=== PATIENT | male | born 1935 | race African-American/Black ===

== ENCOUNTER 2022-05-22 10:09 | Inpatient (IN) | payer OTHER, MEDICAID ==
[~2022-05-22] VITALS: Ht 165.1 cm; Wt 86.6 kg
[2022-05-22] MEDS ORDERED: IOHEXOL-350 100 ML BOTTLE ONE (10:38)
[2022-05-22 10:49] LABS: BASOPHILS % 0.6 % (0.0-2.0); EOSINOPHILS % 4.2 % (0.0-5.0); HEMATOCRIT. 38.7 % (42.0-52.0); HEMOGLOBIN. 12.9 g/dL (14.0-18.0); MEAN CORPUSCULAR HEMOGLOBIN 26.9 pg (28.0-32.0); MEAN CORPUSCULAR VOLUME 80.8 fL (80.0-94.0); MEAN PLATELET VOLUME 8.7 fl (7.4-10.4); MONOCYTES % 6.9 % (2.0-8.0); NEUTROPHILS % 70.3 % (40.0-76.0); PLATELET 116 x1000/uL (130-400); RED BLOOD CELL COUNT 4.79 mill/uL (4.7-6.1); RED CELL DISTRIBUTION WIDTH 16.4 % (11.6-14.6)
[2022-05-22 10:55] LABS: CHLORIDE 111 mEq/L (98-107)
[2022-05-22 10:57] LABS: INR 1.1; PROTHROMBIN TIME 11.3 sec (9.6-11.0)
[2022-05-22 11:02] LABS: ETHANOL BLOOD < 10 mg/dL
[2022-05-22] MEDS ORDERED: GUAIFENESIN 200MG/10ML SUGAR FREE UDC PO PRN (18:15)
[2022-05-22] MEDS ORDERED: DEXTROSE 50% WATER 50ML SYRINGE IV PRN (18:15)
[2022-05-22] MEDS ORDERED: NITROGLYCERIN 0.4MG TABLET SL SL PRN (18:15)
[2022-05-22] MEDS ORDERED: ACETAMINOPHEN 325MG TABLET PO PRN ×2 (18:15)
[2022-05-22] MEDS ORDERED: ONDANSETRON HCL 4MG/2ML INJ IV PRN (18:15)
[2022-05-22] MEDS ORDERED: DOCUSATE SODIUM 100MG CAPSULE PO PRN (18:15)
[2022-05-22] MEDS ORDERED: MAGNESIUM/ALUMINUM HYDROXIDE/SIMETHICONE 30ML UDC PO PRN (18:15)
[2022-05-22] MEDS ORDERED: IPRATROPIUM/ALBUTEROL 0.5-3(2.5)MG/3ML NEB NEB PRN (18:15)
[2022-05-22] MEDS ORDERED: IPRATROPIUM BROMIDE (0.02%) 0.5MG/2.5ML NEB HHN PRN (18:30)
[2022-05-22] MEDS ORDERED: ALBUTEROL (0.083%) 2.5MG/3ML NEB HHN PRN (18:30)
[2022-05-22 19:16] LABS: FOLIC ACID (FOLATE) SERUM >20 ng/mL ng/mL (>5.38); VITAMIN B12 SERUM >2000 pg/mL pg/mL (211-911)
[2022-05-22 19:50] LABS: T4 FREE 0.82 ng/dL (0.76-1.46)
[2022-05-22] MEDS: INSULIN LISPRO 100 UNITS/ML SUBCUT SCH ×2 (20:04→21:00)
[2022-05-22] MEDS: AMLODIPINE 10MG TABLET PO SCH (20:05)
[2022-05-22] MEDS: ENOXAPARIN 30MG/0.3ML SYR SUBCUT SCH (20:23)
[2022-05-22] MEDS: BLOOD SUGAR DIAGNOSTIC STRIP TEST SCH (21:04)
[2022-05-22 22:25] VITALS: BP 184/90
[2022-05-22 22:35] VITALS: BP 184/90
[2022-05-22 22:46] LABS: CREATINE KINASE 136 IU/L (39-308); CREATINE KINASE MB FRACTION 5.6 ng/mL (0.5-3.6)
[2022-05-22] MEDS: CLONIDINE 0.1MG TABLET PO PRN (22:53)
[2022-05-23] VITALS: BP 151/76
[2022-05-23 04:00] VITALS: BP 148/76
[2022-05-23] MEDS: INSULIN LISPRO 100 UNITS/ML SUBCUT SCH ×4 (05:58→20:38)
[2022-05-23] MEDS: BLOOD SUGAR DIAGNOSTIC STRIP TEST SCH ×4 (06:01→20:30)
[2022-05-23 07:35] LABS: BASOPHILS % 0.6 % (0.0-2.0); EOSINOPHILS % 2.7 % (0.0-5.0); HEMATOCRIT. 37.9 % (42.0-52.0); HEMOGLOBIN. 12.2 g/dL (14.0-18.0); LYMPHOCYTES % 16.3 % (20.0-50.0); MEAN CORPUSCULAR HEMOGLOBIN 25.7 pg (28.0-32.0); MEAN CORPUSCULAR VOLUME 80.1 fL (80.0-94.0); MEAN PLATELET VOLUME 8.8 fl (7.4-10.4); NEUTROPHILS % 75.4 % (40.0-76.0); PLATELET 113 x1000/uL (130-400); RED BLOOD CELL COUNT 4.73 mill/uL (4.7-6.1); RED CELL DISTRIBUTION WIDTH 16.4 % (11.6-14.6)
[2022-05-23 07:53] LABS: CHLORIDE 111 mEq/L (98-107)
[2022-05-23 08:00] VITALS: BP 131/86
[2022-05-23 08:02] LABS: PHOSPHORUS 2.8 mg/dL (2.5-4.9)
[2022-05-23 08:05] LABS: CREATINE KINASE MB FRACTION 5.1 ng/mL (0.5-3.6)
[2022-05-23] MEDS: FAMOTIDINE 20MG TABLET PO SCH (09:30)
[2022-05-23] MEDS: CLOPIDOGREL 75MG TABLET PO SCH (09:30)
[2022-05-23 12:00] VITALS: BP 145/78
[2022-05-23] MEDS: AMLODIPINE 10MG TABLET PO SCH (13:26)
[2022-05-23 16:00] VITALS: BP 147/69
[2022-05-23] MEDS: ZOLPIDEM TARTRATE 5MG TABLET PO PRN (20:30)
[2022-05-23] MEDS: ENOXAPARIN 30MG/0.3ML SYR SUBCUT SCH (20:36)
[2022-05-24] MEDS: BLOOD SUGAR DIAGNOSTIC STRIP TEST SCH ×4 (06:10→21:41)
[2022-05-24] MEDS: INSULIN LISPRO 100 UNITS/ML SUBCUT SCH ×4 (06:17→22:04)
[2022-05-24] MEDS: CLONIDINE 0.1MG TABLET PO PRN (07:06)
[2022-05-24 08:00] VITALS: BP 155/80
[2022-05-24] MEDS: AMLODIPINE 10MG TABLET PO SCH (08:42)
[2022-05-24] MEDS: CLOPIDOGREL 75MG TABLET PO SCH (08:42)
[2022-05-24] MEDS: FAMOTIDINE 20MG TABLET PO SCH (08:42)
[2022-05-24 12:00] VITALS: BP 155/78
[2022-05-24 16:00] VITALS: BP 157/82
[2022-05-24] MEDS ORDERED: CLOP-31 MT (16:57)
[2022-05-24] MEDS ORDERED: LOSA25TA26 MT (16:57)
[2022-05-24] MEDS ORDERED: METO-539 MT (16:57)
[2022-05-24] MEDS ORDERED: ASPI-1497 PO (16:57)
[2022-05-24] MEDS ORDERED: TERA1CAP53 MT (16:57)
[2022-05-24] MEDS ORDERED: QUET100T PO (16:57)
[2022-05-24] MEDS ORDERED: MELA10TA MT (16:57)
[2022-05-24] MEDS ORDERED: ATOR-2 MT (16:57)
[2022-05-24 20:00] VITALS: BP 185/90
[2022-05-24] MEDS: ENOXAPARIN 30MG/0.3ML SYR SUBCUT SCH (20:27)
[2022-05-24] MEDS: ZOLPIDEM TARTRATE 5MG TABLET PO PRN (20:27)
[2022-05-25] VITALS (7 sets, daily range): BP systolic 134–174; BP diastolic 81–96
[2022-05-25] MEDS: BLOOD SUGAR DIAGNOSTIC STRIP TEST SCH ×3 (06:45→16:40)
[2022-05-25] MEDS: INSULIN LISPRO 100 UNITS/ML SUBCUT SCH ×3 (06:46→18:20)
[2022-05-25] MEDS: AMLODIPINE 10MG TABLET PO SCH (08:57)
[2022-05-25] MEDS: FAMOTIDINE 20MG TABLET PO SCH (08:57)
[2022-05-25] MEDS: CLOPIDOGREL 75MG TABLET PO SCH (08:57)
[2022-05-25] MEDS ORDERED: HALOPERIDOL LACTATE 5MG/ML VIAL IM PRN (09:15)
[2022-05-25 13:17] LABS: BASOPHILS % 0.5 % (0.0-2.0); EOSINOPHILS % 1.9 % (0.0-5.0); HEMATOCRIT. 38.2 % (42.0-52.0); HEMOGLOBIN. 12.4 g/dL (14.0-18.0); LYMPHOCYTES % 14.9 % (20.0-50.0); MEAN CORPUSCULAR VOLUME 80.4 fL (80.0-94.0); MEAN PLATELET VOLUME 8.5 fl (7.4-10.4); MONOCYTES % 7.9 % (2.0-8.0); NEUTROPHILS % 74.8 % (40.0-76.0); PLATELET 116 x1000/uL (130-400); RED BLOOD CELL COUNT 4.75 mill/uL (4.7-6.1); RED CELL DISTRIBUTION WIDTH 16.3 % (11.6-14.6)
[2022-05-25] MEDS: CLONIDINE 0.1MG TABLET PO PRN (16:35)
[2022-05-28 08:00] VITALS: BP 121/68
== END 2022-05-25 19:42 | disposition short-term general hospital (02) | DRG 64 ==
LOC: ER 10:09 → EDBEDREQTM 11:48 → EDBEDREQ 11:48 → EDBEDREQSVC 11:48 → 7EST 18:05 → EDBEDREQ 18:09 → EDBEDREQTM 18:09 → 7EST 22:52
PROVIDERS: ADMIT Internal Medicine; ATTEND Internal Medicine
DX: I63.9 Cerebral infarction, unspecified (principal); N17.0 Acute kidney failure with tubular necrosis; G93.40 Encephalopathy, unspecified; F05 Delirium due to known physiological condition; N18.9 Chronic kidney disease, unspecified; D63.8 Anemia in other chronic diseases classified elsewhere; D69.6 Thrombocytopenia, unspecified; I12.9 Hypertensive chronic kidney disease with stage 1 through stage 4 chronic kidney disease, or unspecified chronic kidney disease; F03.C0 Unspecified dementia, severe, without behavioral disturbance, psychotic disturbance, mood disturbance, and anxiety; Z20.822 Contact with and (suspected) exposure to COVID-19; Z86.73 Personal history of transient ischemic attack (TIA), and cerebral infarction without residual deficits; Z95.1 Presence of aortocoronary bypass graft; E11.22 Type 2 diabetes mellitus with diabetic chronic kidney disease; E11.65 Type 2 diabetes mellitus with hyperglycemia
CPT/HCPCS: 36415; 70496; 70498; 71045; 80048; 80053; 80061; 80320; 82550; 82553; 82607; 82746; 82962; 83036; 83540; 83550; 83735; 83880; 84100; 84439; 84443; 84484; 85025; 87426; 93005; 93306; 93970; 99291; C1893; J1630; J1650; J1815; Q9967; G0480